=== PATIENT | female | born 1950 | race Caucasian/White ===

== ENCOUNTER 2017-09-25 16:35 | Emergency (ER) | payer OTHER ==
[~2017-09-25] VITALS: Ht 149.9 cm; Wt 67.6 kg
[~2017-09-25 16:35] MED LIST: ABX FOR EAR INFECTIO; ADVAIR HFA115 MCG/21 INH; ADVAIRDISKUS; AUGMENTIN 875875 MG PO; BACTRIM DS TAB1 EACH PO; BACTROBAN22 GM TP; CARISOPRODOL 3350 MG PO; CEFDINIR300 MG PO; CLONAZEPAM; DILAUDID 2 MG TA2 MG PO; FLEXERIL PO; HYDROCODONE-AP1 EAC6 PO; HYDROMORPHONE E16 MG PO; IBUPROFEN 800800 M1 PO; IBUPROFEN 800800 MG PO; LORCET 5-325 M1 EACH PO; MEDROLDOSEPACK; NORCO 10-325 T1 EACH; NORCO 10-325 T1 EACH PO; NORCO 5-325 TA1 EACH PO; OXYCONTIN10 M1 PO; OXYCONTIN20 M1 PO; PERCOCET 5-3251 EACH PO; PERCOCET PO; PREDNISONE50 MG PO; PREVACID 30MG C30 M1 PO; PROVENTIL; ROBAXIN 750 MG750 M1 PO; SEROQUEL; SPIRIVA18 MCG; TESSALON PERLE100 MG PO; VENLAFAXIN75 MG/1 T2 PO; WELLBUTRIN 100100 MG PO; ZANTAC
[2017-09-25] MEDS ORDERED: BRINTELLIX10 MG PO (16:45)
[2017-09-25 17:32] LABS: ABSOLUTE EOSINOPHILS 0.1 thou/uL (0.0-0.7); ABSOLUTE LYMPHOCYTES 2.2 thou/uL (0.8-5.3); ABSOLUTE MONOCYTES 0.8 thou/uL (0.0-1.2); ABSOLUTE NEUTROPHILS 8.8 thou/uL (1.6-8.1); BASOPHILS 0.4 %; EOSINOPHILS 0.6 %; HEMATOCRIT 45.5 % (37.0-47.0); HEMOGLOBIN 15.3 gm/dL (12.0-15.0); LYMPHOCYTES 18.3 %; MCH 31.2 pg (26.0-34.0); MCHC 33.6 g/dL (28.0-37.0); MCV 92.9 fL (80.0-100.0); MONOCYTES 6.6 %; NUCLEATED RBCS 0 /100WBC; PLATELET COUNT* 513 thou/uL (150-400); POLYS 74.1 %; RDW-CV 15.9 % (10.5-14.5); WBC 11.9 thou/uL (4.0-11.0)
[2017-09-25 17:41] LABS: CREATININE 1.1 mg/dL (0.6-1.3); POTASSIUM 3.9 mmol/L (3.5-5.1)
[2017-09-25 17:45] LABS: ALBUMIN 3.2 g/dL (3.4-5.0); TOTAL BILIRUBIN 0.4 mg/dL (<0.1-1.0); TOTAL PROTEIN 7.7 g/dL (6.4-8.2)
[2017-09-25] MEDS ORDERED: LORCET 5-325 M1 EACH PO (19:08)
[2017-09-25] MEDS ORDERED: ZOFRAN ODT4 MG PO (19:08)
[2017-09-25 19:20] VITALS: BP 124/52
--- NOTE | 2017-09-26 15:24 | EKG ---
[place] [address] ELECTROCARDIOGRAM REPORT Name: UDAY VEGA Room: [facility]#: [id number] Admission: 09/25/17 Attend Phys: Discharge: 09/25/17 Date of : 52 Report #: [id number] THIS REPORT FOR: //name// [facility] ED Test Date: 2017-09-25 Test Time: 17:14:27 Pat Name: UDAY VEGA Department: Room: Gender: F System Technologist: Armaan SCOTT : 1950 Requested By: Jamal Castle Order Number: [id number] MD: Yovanny Webster Measurements Intervals [place] Rate: 129 P: 85 KS: 151 QRS: 17 QRSD: 77 T: 84 QT: 300 QTc: 440 Interpretive Statements Sinus tachycardia LAE, consider biatrial enlargement Compared to ECG 05/07/2017 17:45:48 No significant changes Electronically Signed On 09-26-2017 15:23:42 INSPECTION SUPERVISOR by Yovanny Webster [email or web address] <ELECTRONICALLY SIGNED> By: Yovanny Webster MD, [facility] 09/26/17 1523 13 13 Yovanny Webster MD, [facility] /EPI
== END 2017-09-25 19:22 | disposition home or self-care (01) ==
LOC: M.ERS 16:35
PROVIDERS: Physician Assistant
DX: A08.4 Viral intestinal infection, unspecified (principal); J45.909 Unspecified asthma, uncomplicated; J44.9 Chronic obstructive pulmonary disease, unspecified; M19.90 Unspecified osteoarthritis, unspecified site; F17.210 Nicotine dependence, cigarettes, uncomplicated; Z88.5 Allergy status to narcotic agent

== ENCOUNTER 2018-04-12 19:47 | Emergency (ER) | payer OTHER ==
[~2018-04-12] VITALS: Ht 149.9 cm; Wt 64.9 kg
[~2018-04-12 19:47] MED LIST changes: +BRINTELLIX10 MG PO; +ZOFRAN ODT4 MG PO
[2018-04-12] MEDS ORDERED: NORCO 10-325 T1 EACH PO (20:20)
[2018-04-12] MEDS ORDERED: LISINOPRIL10 MG PO (20:21)
[2018-04-12] MEDS ORDERED: ALBUTEROL2.5 MG/31 INH (20:21)
[2018-04-12] MEDS ORDERED: DIAZEPAM2 MG PO (20:22)
[2018-04-12] MEDS ORDERED: HYDROMORPHONE E16 MG PO (20:22)
[2018-04-12] MEDS ORDERED: NORCO 5-325 TA1 EAC1 PO (20:56)
[2018-04-12] MEDS ORDERED: NAPROSYN500 MG PO (20:56)
[2018-04-12 21:20] VITALS: BP 99/47
== END 2018-04-12 21:33 | disposition home or self-care (01) ==
LOC: M.ERS 19:47
DX: G89.29 Other chronic pain (principal); M54.5 Low back pain; Z76.0 Encounter for issue of repeat prescription; J44.9 Chronic obstructive pulmonary disease, unspecified; I10 Essential (primary) hypertension; M19.90 Unspecified osteoarthritis, unspecified site; Z96.652 Presence of left artificial knee joint; F17.210 Nicotine dependence, cigarettes, uncomplicated; Z88.5 Allergy status to narcotic agent

== ENCOUNTER 2018-08-29 10:10 | Emergency (ER) | payer OTHER ==
[~2018-08-29] VITALS: Ht 147.3 cm; Wt 64.4 kg
[~2018-08-29 10:10] MED LIST changes: +ALBUTEROL2.5 MG/31 INH; +DIAZEPAM2 MG PO; +LISINOPRIL10 MG PO; +NAPROSYN500 MG PO; +NORCO 5-325 TA1 EAC1 PO
[2018-08-29] MEDS ORDERED: HYDROCODONE-AP1 EAC6 PO (12:12)
[2018-08-29 12:21] VITALS: BP 139/82
== END 2018-08-29 12:23 | disposition home or self-care (01) ==
LOC: M.ERS 10:10
DX: M25.512 Pain in left shoulder (principal); M54.5 Low back pain; J44.9 Chronic obstructive pulmonary disease, unspecified; M13.842 Other specified arthritis, left hand; M13.841 Other specified arthritis, right hand; I10 Essential (primary) hypertension; F17.210 Nicotine dependence, cigarettes, uncomplicated; Z96.652 Presence of left artificial knee joint

== ENCOUNTER 2019-02-10 16:58 | Emergency (ER) | payer OTHER ==
[~2019-02-10] VITALS: Ht 152.4 cm; Wt 61.2 kg
[2019-02-10 17:26] LABS: ABSOLUTE BASOPHILS 0.1 thou/uL (0.0-0.2); ABSOLUTE LYMPHOCYTES 2.4 thou/uL (0.8-5.3); ABSOLUTE MONOCYTES 0.5 thou/uL (0.0-1.2); ABSOLUTE NEUTROPHILS 6.4 thou/uL (1.6-8.1); BASOPHILS 1.1 %; EOSINOPHILS 0.1 %; HEMATOCRIT 40.3 % (37.0-47.0); HEMOGLOBIN 13.2 gm/dL (12.0-15.0); LYMPHOCYTES 25.9 %; MCH 29.8 pg (26.0-34.0); MCHC 32.8 g/dL (28.0-37.0); MCV 90.8 fL (80.0-100.0); MONOCYTES 5.1 %; NUCLEATED RBCS 0 /100WBC; PLATELET COUNT* 635 thou/uL (150-400); POLYS 67.8 %; RBC 4.44 mil/uL (4.20-5.00); RDW-CV 16.4 % (10.5-14.5); WBC 9.4 thou/uL (4.0-11.0)
[2019-02-10 17:39] LABS: APTT 24.3 Seconds (25.0-31.3); PROTIME 10.4 Seconds (9.20-11.50)
[2019-02-10] MEDS ORDERED: NORCO 5-325 TA1 EACH PO (17:46)
[2019-02-10 17:49] LABS: ALBUMIN 3.3 g/dL (3.4-5.0); ALKALINE PHOSPHATASE 71 U/L (46-116); ANION GAP 6 mmol/L (7-16); CALCIUM 8.8 mg/dL (8.5-10.1); CHLORIDE 102 mmol/L (98-107); CK-MB MASS < 0.5 ng/mL (<0.5-3.6); CO2 32 mmol/L (21-32); CREATININE 0.9 mg/dL (0.6-1.3); GLUCOSE 98 mg/dL (70-99); LIPASE 135 U/L (73-393); MAGNESIUM 2.1 mg/dL (1.8-2.4); NT-PRO BRAIN NAT PEPTIDE 1094 pg/mL (<300); POTASSIUM 3.9 mmol/L (3.5-5.1); SGOT 14 U/L (15-37); SGPT 20 U/L (30-65); SODIUM 140 mmol/L (136-145); TOTAL BILIRUBIN 0.2 mg/dL (<0.1-1.0); TOTAL PROTEIN 7.1 g/dL (6.4-8.2); TROPONIN-I LEVEL <0.06 ng/mL (<0.06)
[2019-02-10 17:54] LABS: BUN 22 mg/dL (7-18)
[2019-02-10 17:56] VITALS: BP 149/84
--- NOTE | 2019-02-11 17:36 | EKG ---
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
== END 2019-02-10 17:56 | disposition home or self-care (01) ==
LOC: M.ERS 16:58
PROVIDERS: Family Medicine
DX: R07.89 Other chest pain (principal); F17.210 Nicotine dependence, cigarettes, uncomplicated; J45.909 Unspecified asthma, uncomplicated; J44.9 Chronic obstructive pulmonary disease, unspecified; I10 Essential (primary) hypertension; M48.00 Spinal stenosis, site unspecified; M17.0 Bilateral primary osteoarthritis of knee; Z96.652 Presence of left artificial knee joint; Z90.710 Acquired absence of both cervix and uterus

== ENCOUNTER → 2019-05-18 | Day surgery (SDC) | payer OTHER ==
[~2019-05-18] MED LIST changes: +ACYCLOVIR 800800 MG PO; +BROVANA15 MCG/2 M INH; +BUSPIRONE HCL15 MG PO; +HYDROMORPHONE E12 MG PO; +HYDROXYZINE HCL25 M2 PO; +INCRUSE ELLI62.5 MCG INH; +LIPITOR10 MG PO; +LISINOPRIL40 MG PO; +PREDNISONE 5 MG5 M1 PO; +PROAIR HFA8.5 GM INH; +PULMICORT0.5 MG/2 M INH; +PULMICORT0.5 MG/22 INH; +SINGULAIR 10 MG10 M1 PO
--- NOTE | ~2019-05-18 | PROC ---
[address] [address] PROCEDURE REPORT Name: UDAY VEGA Room: [facility] M.R.#: [id number] Admission: 05/18/19 Attend Phys: Marco Boles MD Discharge: Date of : 52 Report #: [id number] THIS REPORT FOR: //name// For GI report, please see the Provation report in Perceptive 7 content. By: 0654Medical Records Staff ELAN /ANDREAS
[2019-05-18 09:51] LABS: HEMATOCRIT 45.5 % (37.0-47.0); HEMOGLOBIN 15.2 gm/dL (12.0-15.0); MCH 32.5 pg (26.0-34.0); MCHC 33.3 g/dL (28.0-37.0); MCV 97.5 fL (80.0-100.0); MPV 8.1 fl. (7.2-11.1); RBC 4.67 mil/uL (4.20-5.00); RDW-CV 15.7 % (10.5-14.5); WBC 10.4 thou/uL (4.0-11.0)
[2019-05-18 09:58] LABS: CALCIUM 9.5 mg/dL (8.5-10.1); CREATININE 0.8 mg/dL (0.6-1.3)
[2019-05-18 10:03] LABS: TOTAL BILIRUBIN 0.1 mg/dL (<0.1-1.0); TOTAL PROTEIN 8.2 g/dL (6.4-8.2)
--- NOTE | 2019-05-18 13:59 | EKG ---
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: : 1950 Requested By: Oswaldo Trotter Order Number: [id number] Luciano MD: Bipin Madrigal Measurements Intervals [place] Rate: 112 P: 71 PA: 140 QRS: -19 QRSD: 101 T: 71 QT: 337 QTc: 460 Interpretive Statements Sinus tachycardia PETE, consider biatrial enlargement Low voltage, extremity leads Compared to ECG 03/20/2019 18:36:36 Low QRS voltage now present rate slowed Prolonged QT interval no longer present Electronically Signed On 05-18-2019 13:59:28 CDT by Bipin Madrigal [email or web address] <ELECTRONICALLY SIGNED> By: Bipin Madrigal MD, [facility] 05/18/19 1359 1013 1013 Bipin Madrigal MD, [facility] /EPI
--- NOTE | 2019-05-19 14:06 | PATH ---
[facility] [address] [place] [address] PATHOLOGY RPT PROCEDURE Name: UDAY CHACKO Room: [facility].R.#: [id number] Admission: 05/18/19 Date of : 52 Discharge: Report #: [id number] Path Case #: [id number] [facility] Accession Number: [id number] . 01 Material submitted: . colon - TRANSVERSE COLON POLYP. Modifiers: transverse . 01 Clinical history: . Pre-OP DX: Dysphagia, diarrhea, constipation, personal Hx of colon polyps, family HX Post-OP DX: Of colon cancer . 02 Diagnosis: Transverse colon polyp: - Tubular adenoma, negative for high-grade dysplasia. (RAMSES:jonathan; 05/19/2019) QMS/05/19/2019 . 02 Electronically signed: . Sergei Garces MD, Pathologist NPI- [id number] . 01 Gross description: . Received in formalin labeled "Chacko, Uday, transverse colon polyp," is a single segment of eli soft tissue measuring 0.4 cm in maximum dimension. The specimen is entirely submitted in cassette A1. (TSD; 05/18/2019) TOB/TOB . 02 Pathologist provided ICD-10: D12.3 . 02 CPT . 120355 Specimen Comment: A courtesy copy of this report has been sent to Specimen Comment: [phone], , . Specimen Comment: Report sent to ,DR ESCALANTE / DR ELDRIDGE Performed at: [address], [place] [address] MD Fred Watters MD Phone: [phone] Performed at: 02 [facility] [address], [place], [place] [address] MD Sergei Garces MD Phone: [phone]
== END | disposition home or self-care (01) ==
LOC: M.SUR 09:02
PROVIDERS: Anesthesiology
DX: D12.3 Benign neoplasm of transverse colon (principal); K57.30 Diverticulosis of large intestine without perforation or abscess without bleeding; K64.8 Other hemorrhoids; K22.2 Esophageal obstruction; K44.9 Diaphragmatic hernia without obstruction or gangrene; I10 Essential (primary) hypertension; J44.9 Chronic obstructive pulmonary disease, unspecified; F32.9 Major depressive disorder, single episode, unspecified; F41.9 Anxiety disorder, unspecified; K21.9 Gastro-esophageal reflux disease without esophagitis; Z98.890 Other specified postprocedural states; Z86.010 Personal history of colon polyps; Z79.899 Other long term (current) drug therapy

== ENCOUNTER 2020-02-11 16:53 | Observation (INO) | payer OTHER ==
[~2020-02-11] VITALS: Ht 152.4 cm; Wt 65.2 kg
[2020-02-11 17:12] LABS: ABSOLUTE BASOPHILS 0.2 thou/uL (0.0-0.2); ABSOLUTE EOSINOPHILS 0.4 thou/uL (0.0-0.7); ABSOLUTE LYMPHOCYTES 5.3 thou/uL (0.8-5.3); ABSOLUTE MONOCYTES 1.1 thou/uL (0.0-1.2); ABSOLUTE NEUTROPHILS 5.7 thou/uL (1.6-8.1); BASOPHILS 1.4 %; EOSINOPHILS 3.1 %; HEMATOCRIT 45.5 % (37.0-47.0); HEMOGLOBIN 15.1 gm/dL (12.0-15.0); LYMPHOCYTES 41.7 %; MCH 31.2 pg (26.0-34.0); MCHC 33.2 g/dL (28.0-37.0); MCV 94.1 fL (80.0-100.0); MPV 8.1 fl. (7.2-11.1); NUCLEATED RBCS 0 /100WBC; PLATELET COUNT* 532 thou/uL (150-400); POLYS 44.8 %; RBC 4.84 mil/uL (4.20-5.00); RDW-CV 13.5 % (10.5-14.5); WBC 12.6 thou/uL (4.0-11.0)
[2020-02-11 17:20] LABS: CALCIUM 8.2 mg/dL (8.5-10.1); POTASSIUM 3.4 mmol/L (3.5-5.1)
[2020-02-11 17:31] LABS: ALBUMIN 3.9 g/dL (3.4-5.0); MAGNESIUM 1.9 mg/dL (1.8-2.4); TOTAL BILIRUBIN 0.4 mg/dL (<0.1-1.0); TOTAL PROTEIN 7.2 g/dL (6.4-8.2)
[2020-02-11 20:17] VITALS: BP 129/77
[2020-02-11 20:40] VITALS: BP 146/72
[2020-02-11 23:50] VITALS: BP 111/58
[2020-02-12 05:14] LABS: HEMOGLOBIN 13.7 gm/dL (12.0-15.0); MCH 31.5 pg (26.0-34.0); MCHC 33.4 g/dL (28.0-37.0); MCV 94.4 fL (80.0-100.0); MPV 7.9 fl. (7.2-11.1); RBC 4.35 mil/uL (4.20-5.00); RDW-CV 13.5 % (10.5-14.5); WBC 9.7 thou/uL (4.0-11.0)
[2020-02-12 05:26] LABS: ANION GAP 7 mmol/L (7-16); BUN 14 mg/dL (7-18); CALCIUM 8.2 mg/dL (8.5-10.1); CHLORIDE 105 mmol/L (98-107); CO2 29 mmol/L (21-32); CREATININE 0.9 mg/dL (0.6-1.3); GLUCOSE 90 mg/dL (70-99); SODIUM 141 mmol/L (136-145)
[2020-02-12 05:30] LABS: ALBUMIN 3.1 g/dL (3.4-5.0); CHOLESTEROL 217 mg/dL (<200); HDL CHOLESTEROL 88 mg/dL (>40); LDL CHOLESTEROL 108 mg/dL (<100); MAGNESIUM 2.1 mg/dL (1.8-2.4); TC:HDL 2.5 Ratio (Not establshd); TRIGLYCERIDE 105 mg/dL (<150); VLDL 21 mg/dL (<40)
[2020-02-12 05:32] LABS: % SATURATION 33 % (20-39); IRON 89 ug/dL (50-175)
[2020-02-12 05:38] LABS: SERUM ASSESSMENT CLEAR
[2020-02-12 08:00] VITALS: BP 117/80
[2020-02-12] MEDS ORDERED: LIPITOR40 MG PO (10:11)
--- NOTE | 2020-02-12 11:19 | EKG ---
[place] [address] ELECTROCARDIOGRAM REPORT Name: UDAY VEGA Room: [address] M.R.#: [id number] Admission: 02/11/20 Attend Phys: Kwasi luz Sa Discharge: Date of : 52 Date of Service: 02/11/20 1657 Report #: [id number] THIS REPORT FOR: //name// [facility] ED Test Date: 2020-02-11 Test Time: 16:57:37 Pat Name: UDAY VEGA Department: Room: [facility] Gender: F Injection Molding Machine Offbearer: JUSTO : 1950 Requested By: Nickolas Robertson Order Number: [id number] MD: Bipin Madrigal Measurements Intervals [place] Rate: 122 P: 72 SC: 144 QRS: -26 QRSD: 90 T: 78 QT: 290 QTc: 413 Interpretive Statements Sinus tachycardia ventricular premature couplets pac Probable left atrial enlargement Borderline left axis deviation Baseline wander in lead(s) V2,V3,V4,V5,V6 Compared to ECG 05/18/2019 10:13:07 Ventricular premature complex(es) now present Electronically Signed On 02-12-2020 11:17:19 CDT by Bipin Madrigal [email or web address] <ELECTRONICALLY SIGNED> By: Bipin Madrigal MD, [facility] 02/12/20 1117 1657 1657 Bipin Madrigal MD, [facility] /EPI
[2020-02-12 12:42] VITALS: BP 117/80
--- NOTE | 2020-02-12 13:20 | NUR ---
ASSUMED PT CARE AT 0730, FULL ASSESMENT DONE CHARTED. PT A/O X4, C/O SOME PAIN IN THE LEFT SHOULDER, KNEE, AND BACK, HAD NOT TAKEN SCHEDULED PAIN MEDS ON PATIENT OBSERVER, BUT DID WANT IT LATER THIS AM. SHE REQUESTED A SLING FOR LEFT ARM. VSS, SR/PVC'S ON THE MONITOR. DISCHARGE ORDERS RECIEVED, REVIEWED INSTRUCTIONS WITH PATIENT. SCRIPT WAS SENT TO PHARMACY, PATIENT VERBALIZED UNDERSTANDING OF TEACHING. IV REMOVED, BELONGINGS GATHERED, PATIENT LEFT WITH STAFF BY WC AT APPROX 1315 TO MEET IN ER.
== END 2020-02-12 13:20 | disposition home or self-care (01) ==
LOC: M.ERS 16:53 → M.2W 18:42 → M.TBA-ER 18:42 → M.2W 20:45
PROVIDERS: Emergency Medicine Emergency Medical Services; ADMIT Family Medicine
DX: R07.89 Other chest pain (principal); M25.512 Pain in left shoulder; D72.829 Elevated white blood cell count, unspecified; J44.9 Chronic obstructive pulmonary disease, unspecified; I10 Essential (primary) hypertension; F41.9 Anxiety disorder, unspecified; G89.4 Chronic pain syndrome; M19.90 Unspecified osteoarthritis, unspecified site; D47.3 Essential (hemorrhagic) thrombocythemia; M48.00 Spinal stenosis, site unspecified; F17.200 Nicotine dependence, unspecified, uncomplicated

== ENCOUNTER 2020-05-16 03:24 | Emergency (ER) | payer OTHER ==
[~2020-05-16] VITALS: Ht 160 cm; Wt 71.0 kg
[~2020-05-16 03:24] MED LIST changes: +LIPITOR40 MG PO
[2020-05-16 04:25] LABS: ABSOLUTE EOSINOPHILS 0.1 thou/uL (0.0-0.7); ABSOLUTE LYMPHOCYTES 2.3 thou/uL (0.8-5.3); ABSOLUTE MONOCYTES 0.4 thou/uL (0.0-1.2); ABSOLUTE NEUTROPHILS 6.2 thou/uL (1.6-8.1); BASOPHILS 0.5 %; EOSINOPHILS 1.1 %; HEMATOCRIT 33.1 % (37.0-47.0); HEMOGLOBIN 10.4 gm/dL (12.0-15.0); LYMPHOCYTES 25.2 %; MCH 33.1 pg (26.0-34.0); MCHC 31.3 g/dL (28.0-37.0); MONOCYTES 4.5 %; MPV 8.6 fl. (7.2-11.1); NUCLEATED RBCS 0 /100WBC; PLATELET COUNT* 261 thou/uL (150-400); POLYS 68.7 %; RBC 3.12 mil/uL (4.20-5.00); RDW-CV 15.4 % (10.5-14.5)
[2020-05-16 04:55] LABS: INR 1.2; PROTIME 12.2 Seconds (9.20-11.50)
[2020-05-16 04:58] LABS: URINE BILIRUBIN NEGATIVE (Negative); URINE BLOOD NEGATIVE (Negative); URINE CLARITY CLEAR; URINE COLOR YELLOW; URINE GLUCOSE-RANDOM NEGATIVE (Negative); URINE KETONES TRACE (Negative); URINE LEUKOCYTES-REFLEX NEGATIVE (Negative); URINE NITRITE-REFLEX NEGATIVE (Negative); URINE PROTEIN 1+ (Negative); URINE SPECIFIC GRAVITY 1.025 (1.005-1.030); URINE UROBILINOGEN 0.2 E.U./dl (0.2-1.0)
[2020-05-16 05:01] LABS: MAGNESIUM 2.7 mg/dL (1.8-2.4)
[2020-05-16 05:09] LABS: CALCIUM 7.3 mg/dL (8.5-10.1); CREATININE 2.9 mg/dL (0.6-1.3); POTASSIUM 3.9 mmol/L (3.5-5.1)
[2020-05-16 05:14] LABS: ALBUMIN 1.8 g/dL (3.4-5.0); TOTAL BILIRUBIN 0.3 mg/dL (<0.1-1.0); TOTAL PROTEIN 3.9 g/dL (6.4-8.2)
[2020-05-16 05:18] LABS: BE -23.7 mmol/L (-2 to +3)
[2020-05-16 05:20] LABS: PCO2 89.1 mmHg (35.0-45.0); PO2 54.1 mmHg (75.0-100.0); pH 6.749 (7.340-7.450)
--- NOTE | 2020-05-16 11:39 | EKG ---
[place] [address] ELECTROCARDIOGRAM REPORT Name: BRADLEY VEGAHLDENNIS GILLETTE Room: [facility]#: [id number] Admission: 05/16/20 Attend Phys: Discharge: Date of : 52 Date of Service: 05/16/20 0507 Report #: [id number] THIS REPORT FOR: //name// [facility] ED Test Date: 2020-05-16 Test Time: 05:07:48 Pat Name: UDAY VEGA Department: Room: Gender: F Split Leather Department Supervisor: Rafael Vivas : 1950 Requested By: Melony Severino Order Number: [id number] Reading MD: Nate Arciniega Measurements Intervals [place] Rate: 107 P: 70 IN: 176 QRS: 264 QRSD: 91 T: 72 QT: 368 QTc: 491 Interpretive Statements Sinus tachycardia Consider RVH w/ secondary repol abnormality Inferior infarct, old Compared to ECG 05/16/2020 04:06:30 Right bundle-branch block no longer present Myocardial infarct finding still present Electronically Signed On 05-16-2020 11:39:19 CDT by Nate Arciniega [email or web address] <ELECTRONICALLY SIGNED> By: Nate Arciniega MD, [facility] 05/16/20 1139 0507 0507 Nate Arciniega MD, [facility] /EPI
--- NOTE | 2020-05-16 11:39 | EKG ---
[place] [address] ELECTROCARDIOGRAM REPORT Name: UDAY VEGA Room: [facility]#: [id number] Admission: 05/16/20 Attend Phys: Discharge: Date of : 52 Date of Service: 05/16/20 0534 Report #: [id number] THIS REPORT FOR: //name// [facility] ED Test Date: 2020-05-16 Test Time: 05:34:23 Pat Name: UDAY VEGA Department: Room: Gender: F Travel Insurance Agent: Rafael Vivas : 1950 Requested By: Melony Severino Order Number: [id number] Reading MD: Nate Arciniega Measurements Intervals [place] Rate: 102 P: 67 AK: 170 QRS: -71 QRSD: 82 T: 91 QT: 395 QTc: 515 Interpretive Statements Sinus tachycardia Inferior infarct, old Lateral leads are also involved Prolonged QT interval Compared to ECG 05/16/2020 05:07:48 Prolonged QT interval now present Myocardial infarct finding still present Electronically Signed On 05-16-2020 11:39:26 CDT by Nate Arciniega [email or web address] <ELECTRONICALLY SIGNED> By: Nate Arciniega MD, [facility] 05/16/20 1139 0534 0534 Nate Arciniega MD, [facility] /EPI
--- NOTE | 2020-05-16 11:39 | EKG ---
[place] [address] ELECTROCARDIOGRAM REPORT Name: BRADLEY VEGAHLDENNIS GILLETTE Room: [facility]#: [id number] Admission: 05/16/20 Attend Phys: Discharge: Date of : 52 Date of Service: 05/16/20 0406 Report #: [id number] THIS REPORT FOR: //name// [facility] ED Test Date: 2020-05-16 Test Time: 04:06:30 Pat Name: UDAY VEGA Department: Room: Gender: F Rectification Printer: Rafael Vivas : 1950 Requested By: Melony Severino Order Number: [id number] MD: Nate Arciniega Measurements Intervals [place] Rate: 118 P: 71 IN: 151 QRS: -88 QRSD: 152 T: 76 QT: 351 QTc: 492 Interpretive Statements Sinus tachycardia Right bundle branch block Inferior infarct, old Baseline wander in lead(s) II,III,aVL,aVF Compared to ECG 02/11/2020 16:58:49 Right bundle-branch block now present Myocardial infarct finding now present Ventricular premature complex(es) no longer present Electronically Signed On 05-16-2020 11:39:06 CDT by Nate Arciniega [email or web address] <ELECTRONICALLY SIGNED> By: Nate Arciniega MD, [facility] 05/16/20 1139 5 5 Nate Arciniega MD, [facility] /EPI
[2020-05-16 13:11] VITALS: BP 00/00
== END 2020-05-16 07:30 ==
LOC: M.ERS 03:24
PROVIDERS: Emergency Medicine
DX: I46.9 Cardiac arrest, cause unspecified (principal); Z20.828 Contact with and (suspected) exposure to other viral communicable diseases; J44.9 Chronic obstructive pulmonary disease, unspecified; J45.909 Unspecified asthma, uncomplicated; I10 Essential (primary) hypertension; M13.862 Other specified arthritis, left knee; M13.842 Other specified arthritis, left hand; M13.841 Other specified arthritis, right hand; F17.210 Nicotine dependence, cigarettes, uncomplicated; Z90.710 Acquired absence of both cervix and uterus; Z88.8 Allergy status to other drugs, medicaments and biological substances